=== PATIENT | male | born 1940 | race Caucasian/White ===

== ENCOUNTER → 2016-08-10 | Outpatient (CLI) | payer OTHER ==
[~2016-08-10] MED LIST: ASPEC81 PO; CLOP1TAB15 PO; NTRGSL/4 UT; SIMV40TA2 PO
[2016-08-10 12:49] LABS: ALT/SGPT 19 U/L (12-78); BLOOD UREA NITROGEN 17 mg/dl (7-18); CALCIUM 9.6 mg/dl (8.5-10.1); CARBON DIOXIDE 28 mmol/L (21-32); CHLORIDE 105 mmol/L (98-107); CHOLESTEROL 137 mg/dl (0-200); GLUCOSE 97 mg/dl (70-99); POTASSIUM 4.3 mmol/L (3.5-5.1); SODIUM 142 mmol/L (136-145); TRIGLYCERIDES 83 mg/dl (0-150); VERY LOW DENSITY LIPOPROT CALC 17 mg/dl
[2016-08-10 12:53] LABS: AST/SGOT 23 U/L (15-37); CHOLESTEROL/HDL RATIO 2.5; HDL CHOLESTEROL 55 mg/dl; LDL CHOLESTEROL CALCULATED 65 mg/dl
== END | disposition home or self-care (01) ==
LOC: C.LAB1850 11:15
PROVIDERS: ATTEND Internal Medicine
DX: E78.5 Hyperlipidemia, unspecified (principal); R73.9 Hyperglycemia, unspecified; R97.20 Elevated prostate specific antigen [PSA]

== ENCOUNTER → 2016-10-14 | Outpatient (CLI) | payer OTHER ==
[2016-10-14 12:29] LABS: % FREE PSA 29.4 %; FREE PSA 1.44 ng/ml; PROSTATE SPECIFIC ANTIGEN 4.9 ng/ml (0.000-4.000)
== END | disposition home or self-care (01) ==
LOC: C.LAB1850 10:20
PROVIDERS: ATTEND Internal Medicine
DX: R97.20 Elevated prostate specific antigen [PSA] (principal)

== ENCOUNTER → 2017-02-16 | Outpatient (CLI) | payer OTHER ==
[2017-02-16 11:16] LABS: CHOLESTEROL/HDL RATIO 2.2
== END | disposition home or self-care (01) ==
LOC: C.LAB1850 09:42
PROVIDERS: ATTEND Internal Medicine Cardiovascular Disease
DX: E78.5 Hyperlipidemia, unspecified (principal)

== ENCOUNTER 2017-08-29 06:10 | Day surgery (SDC) | payer OTHER ==
[2017-08-17 13:58] VITALS: BMI 27.0
--- NOTE | 2017-08-17 14:33 | PAT Medication Instructions ---
Service Date Aug 17, 2017. Current Home Medication List Aspirin Enteric Coated (Ecotrin Or Generic), 81 MG PO QAM Clopidogrel (Plavix), 75 MG PO QAM Nitroglycerin (Nitrostat), 0.4 MG UT PRN Ocuvite Preservision (Ocuvite Preservision), 1 TAB PO BID Simvastatin (Zocor), 40 MG PO QPM Tamsulosin HCl (Tamsulosin HCl), 1 TAB PO QPM Medication Instructions For Your Scheduled Surgery - Per surgeon and clinical administrator instructions: Aspirin Enteric Coated (Ecotrin Or Generic), 81 MG PO QAM - Hold the following medications the morning of surgery: Ocuvite Preservision (Ocuvite Preservision), 1 TAB PO BID - Take the following medications the morning of surgery with a sip of water: Nitroglycerin (Nitrostat), 0.4 MG UT PRN (if needed) Clopidogrel (Plavix), 75 MG PO QAM (to continue per surgeon and clinical administrator) - Take the following medications as scheduled the night before surgery: Tamsulosin HCl (Tamsulosin HCl), 1 TAB PO QPM Ocuvite Preservision (Ocuvite Preservision), 1 TAB PO BID Simvastatin (Zocor), 40 MG PO QPM Nitroglycerin (Nitrostat), 0.4 MG UT PRN (if needed) If you have any questions please call us at [phone] or [phone] or [phone]
--- NOTE | 2017-08-17 15:03 | DIAGNOSTIC IMAGING REPORT ---
CHEST 2 VIEWS ROUTINE HISTORY: 76 years-old Male PAT preoperative exam. No acute chest complaints. COMPARISON: Chest radiographs 08/25/2015 TECHNIQUE: PA and lateral views of the chest FINDINGS: The patient is slightly rotated to the left. Atherosclerosis of the aorta. Coronary arterial stent graft noted. Minimal subsegmental bibasilar opacities suggest atelectasis. There is no pneumothorax, pleural effusion, focal airspace consolidation or overt pulmonary edema. The bones of the chest appear grossly intact. Advanced degenerative changes are noted about the right shoulder. IMPRESSION: Subsegmental bibasilar opacities suggest atelectasis. No acute process identified. The above report was generated using voice recognition software. It may contain grammatical, syntax or spelling errors. Electronically signed by: Justino Chaney M.D. 08/17/2017 3:02 PM Dictated Date/Time: 08/17/2017 3:00 PM
[2017-08-17 16:19] LABS: BASO % 0.5 %; BASO ABS # 0.04 K/uL (0-0.2); EOS % 2.6 %; HEMATOCRIT 44.1 % (42-52); HEMOGLOBIN 15.5 g/dL (14.0-18.0); IG# 0.01 K/uL (0.00-0.02); LYMPH ABS # 2.43 K/uL (1.2-3.4); MEAN CELL VOLUME 85.1 fL (80-100); MEAN CORPUSCULAR HEMOGLOBIN 29.9 pg (25-34); MEAN CORPUSCULAR HGB CONC 35.1 g/dl (32-36); MEAN PLATELET VOLUME 9.1 fL (7.4-10.4); MONO % 9.3 %; MONO ABS # 0.71 K/uL (0.11-0.59); NEUT % 55.5 %; NEUT ABS # 4.21 K/uL (1.4-6.5); PLATELET COUNT 281 K/uL (130-400); RED CELL DISTRIBUTION WIDTH CV 14.2 % (11.5-14.5); RED CELL DISTRIBUTION WIDTH SD 44.3 fL (36.4-46.3)
[2017-08-17 16:41] LABS: CREATININE 1.09 mg/dl (0.60-1.40); POTASSIUM 4.6 mmol/L (3.5-5.1)
[~2017-08-29] VITALS: Ht 180.3 cm; Wt 88.6 kg
[~2017-08-29 06:10] MED LIST changes: -ASPEC81 PO; +ASPI81TA21 PO; +CIPROFLOXACIN / D5W 400 MG IV SCH; +FLM4 PO; +LACTATED RINGER'S 1000ML 1,000 ML IV SCH; +MULT-190 PO
[2017-08-29 06:33] VITALS: BP 140/75; PULSE 63; TEMP 37.3; O2SAT 97; Ht 180.3 cm; Wt 88.6 kg
--- NOTE | 2017-08-29 07:26 | History & Physical Bridge Note ---
H&P Re-Evaluation Bridge Note: I have examined the patient, reviewed the History & Physical and in the interval since the performance of the History & Physical I have noted the following changes of clinical significance: No changes noted
[2017-08-29] MEDS ORDERED: FENTANYL CITRATE INJ 50 MCG/1 ML 2 ML VIAL ONE (08:02)
[2017-08-29] MEDS ORDERED: MIDAZOLAM HCL 1 MG/ML 2ML VIAL ONE (08:02)
[2017-08-29] MEDS ORDERED: PROPOFOL IV EMULSION 10 MG/ML 20 ML VIAL IV ONE (08:02)
[2017-08-29] MEDS ORDERED: LIDOCAINE HCL 2% 2 ML VIAL (20MG/ML) ONE (08:02)
--- NOTE | 2017-08-29 09:13 | [facility] Operative Report ---
Operative Report Operative Date Aug 29, 2017. Pre-Operative Diagnosis Benign Prostate Hypertrophy with Urinary Retention Post-Operative Diagnosis Benign Prostate Hypertrophy with Urinary Retention Procedure(s) Performed Cystoscopy, uro-lift Surgeon Dr. Cody Estimated Blood Loss 0 cc Specimens none per surgeon Drains None Anesthesia Type MAC Complication(s) none Disposition yes Recovery Room / PACU Indications Voiding dysfunction Description of Procedure Patient was identified in the preoperative holding area, appropriate informed consents were reviewed and completed and the patient was transported to the operating suite. Upon arrival he received appropriate preoperative antibiotics in the form of ciprofloxacin. Adequate sedation was achieved, and he was placed in dorsal lithotomy position where he was sterilely prepped and draped in standard fashion. I began the case by passing a cystoscope with 0 lens. Inspection of the urethra revealed healthy-appearing mucosa without evidence of strictures. Prostate was inspected, and he was noted to have lateral lobe hypertrophy. Full inspection of the bladder was carried out. There were no tumors, stones, or other abnormalities. I then exchanged visual obturator for the first uro-lift device. The first suture was deployed on the right side of the prostate approximately 1 cm in from the bladder neck. A mirror image suture was then deployed on the left. A third suture was placed adjacent to the verumontanum on the right. A fourth suture was placed in a mirror image of this location on the left. Inspection again revealed some redundant tissue in the patient's right lateral lobe. I elected to place 1/5 device in the midportion of the right lateral lobe to relieve this obstruction. After placement of this device, there was a nice anterior channel created. I confirmed excellent hemostasis and concluded the case. He was reversed from anesthesia and taken to the PACU in stable condition. I attest to the content of the Intraoperative Record and any orders documented therein. Any exceptions are noted below.
[2017-08-29] MEDS ORDERED: SODIUM CHLORIDE 0.9% 1000ML 1,000 ML IV SCH (09:14)
[2017-08-29] MEDS ORDERED: ACETAMINOPHEN 325 MG TAB PO PRN (09:15)
[2017-08-29] MEDS ORDERED: OXYCODONE/ACETAMINOPHEN 5-325 TAB PO PRN ×2 (09:15)
[2017-08-29] MEDS ORDERED: ACET-749 PO (09:16)
[2017-08-29] MEDS ORDERED: CIPR-255 PO (09:16)
--- NOTE | 2017-08-29 09:18 | Discharge Instructions ---
Discharge Instructions Date of Service Aug 29, 2017. Admission Reason for Admission: Benign Prostatic Hypertrophy Discharge Discharge Diagnosis / Problem: BPH Discharge Goals Goal(s): Decrease discomfort, Improve function, Increase independence, Improve disease control, Prevent Disease Progression Activity Recommendations Activity Limitations: resume your previous activity Lifting Limitations: none Exercise/Sports Limitations: none May Resume Sexual Activity: when tolerated Shower/Bathe: no limitations Driving or Machine Use: resume 1 day after discharge . Instructions / Follow-Up Instructions / Follow-Up Please keep your previously scheduled follow up appointment with Dr. Cody Current Hospital Diet Patient's current hospital diet: Discharge Diet Recommended Diet: Regular Diet Procedures Procedures Performed: Cystoscopy, uro-lift Pending Studies Studies pending at discharge: no Medical Emergencies . Who to Call and When: Medical Emergencies: If at any time you feel your situation is an emergency, please call 911 immediately. . Non-Emergent Contact Non-Emergency issues call your: Urologist Call Non-Emergent contact if: you have a fever, temperature is above 101.5, your pain is not controlled, your pain is worsening . . "Provider Documentation" section prepared by Amor Robbins. . [place] Drug Monitoring Program Search Results: no issues identified
--- NOTE | 2017-08-29 09:37 | Anesthesiology Progress Note ---
Anesthesia Post Op Note Date & Time Aug 29, 2017 at 09:37 Vital Signs Pain Intensity: 0 Vital Signs Past 12 Hours Date Time Temp Pulse Resp B/P (MAP) Pulse Ox O2 Delivery O2 Flow Rate FiO2 08/29/17 09:25 69 24 105/66 94 Room Air 08/29/17 09:15 36.0 73 13 104/65 95 Room Air 08/29/17 06:33 37.3 63 18 140/75 (96) 97 Room Air Notes Mental Status: alert / awake / arousable, participated in evaluation Pt Amnestic to Procedure: Yes Nausea / Vomiting: adequately controlled Pain: adequately controlled Airway Patency, RR, SpO2: stable & adequate BP & HR: stable & adequate Hydration State: stable & adequate Anesthetic Complications: no major complications apparent
[2017-08-29 09:40] VITALS: BP 113/74; PULSE 60; TEMP 36.1; O2SAT 98
[2017-08-29] MEDS ORDERED: EpHEDrine SULFATE INJ 50 MG/ML AMP IV PRN (09:45)
[2017-08-29] MEDS ORDERED: FENTANYL CITRATE INJ 50 MCG/1 ML 2 ML VIAL IV PRN (09:45)
[2017-08-29] MEDS ORDERED: ATROPINE SULFATE 0.1 MG/ML 5ML SYR IV PRN (09:45)
[2017-08-29] MEDS ORDERED: ONDANSETRON INJ 2 MG/ML 2 ML VIAL IV PRN (09:45)
[2017-08-29 10:10] VITALS: BP 124/77; PULSE 59; TEMP 36.6; O2SAT 96
[2017-08-29 10:40] VITALS: BP 118/76; PULSE 61; TEMP 36.6; O2SAT 96
== END 2017-08-29 10:40 | disposition home or self-care (01) ==
LOC: C.ACU 06:10
PROVIDERS: ATTEND Urology
DX: N40.1 Benign prostatic hyperplasia with lower urinary tract symptoms (principal); N13.8 Other obstructive and reflux uropathy; M19.90 Unspecified osteoarthritis, unspecified site; I25.10 Atherosclerotic heart disease of native coronary artery without angina pectoris; Z85.828 Personal history of other malignant neoplasm of skin; E78.5 Hyperlipidemia, unspecified; I34.0 Nonrheumatic mitral (valve) insufficiency; G62.9 Polyneuropathy, unspecified; I25.2 Old myocardial infarction; I10 Essential (primary) hypertension; Z87.891 Personal history of nicotine dependence; Z79.82 Long term (current) use of aspirin; Z79.899 Other long term (current) drug therapy; Z88.2 Allergy status to sulfonamides

== ENCOUNTER → 2017-09-06 | Outpatient (CLI) | payer OTHER ==
[~2017-09-06] MED LIST changes: +ACET-749 PO; +CIPR-255 PO; -CIPROFLOXACIN / D5W 400 MG IV SCH; -FLM4 PO; -LACTATED RINGER'S 1000ML 1,000 ML IV SCH
[2017-09-06 12:21] LABS: HEMOGLOBIN A1C 5.5 % (4.5-5.6)
[2017-09-06 12:22] LABS: ALT/SGPT 19 U/L (12-78); BLOOD UREA NITROGEN 17 mg/dl (7-18); CALCIUM 9.2 mg/dl (8.5-10.1); CARBON DIOXIDE 29 mmol/L (21-32); CHOLESTEROL 152 mg/dl (0-200); CREATININE 1.08 mg/dl (0.60-1.40); GLUCOSE 97 mg/dl (70-99); POTASSIUM 3.9 mmol/L (3.5-5.1); SODIUM 139 mmol/L (136-145)
[2017-09-06 12:26] LABS: AST/SGOT 22 U/L (15-37); LDL CHOLESTEROL CALCULATED 78 mg/dl
== END | disposition home or self-care (01) ==
LOC: C.LAB1850 10:23
PROVIDERS: ATTEND Internal Medicine
DX: R73.9 Hyperglycemia, unspecified (principal); E78.5 Hyperlipidemia, unspecified; R97.20 Elevated prostate specific antigen [PSA]

== ENCOUNTER → 2017-12-26 | Outpatient (CLI) | payer OTHER ==
[~2017-12-26] MED LIST changes: -ACET-749 PO; +ACET300T3 PO; +ASPI-319 PO; -ASPI81TA21 PO
--- NOTE | 2017-12-26 16:23 | DIAGNOSTIC IMAGING REPORT ---
Brain MRI WITHOUT CONTRAST HISTORY: R27.0 Ataxia [id number] TECHNIQUE: Multiplanar multisequence MRI of the brain was performed without the use of contrast. COMPARISON STUDY: Brain MRI 02/11/2014. FINDINGS: There are no areas of restricted diffusion to suggest acute infarction. The midline structures are intact. Mild mucosal thickening and small retention cysts within the maxillary sinuses. The mastoid air cells are clear. The ventricles and sulci demonstrate mild atrophic changes.. There is no mass, hematoma, midline shift. The major vascular flow-voids at the skull base are well maintained. IMPRESSION: No acute intracranial abnormality. Electronically signed by: Rob Ross M.D. 12/26/2017 4:22 PM Dictated Date/Time: 12/26/2017 4:15 PM
== END | disposition home or self-care (01) ==
LOC: C.MRI 14:56
PROVIDERS: ATTEND Internal Medicine
DX: R27.0 Ataxia, unspecified (principal)

== ENCOUNTER → 2018-01-23 | Outpatient (CLI) | payer OTHER ==
[2018-01-23 12:43] LABS: BLOOD UREA NITROGEN 14 mg/dl (7-18); CALCIUM 9.2 mg/dl (8.5-10.1); CARBON DIOXIDE 31 mmol/L (21-32); CREATININE 1.03 mg/dl (0.60-1.40); GLUCOSE 97 mg/dl (70-99); POTASSIUM 4.5 mmol/L (3.5-5.1); SODIUM 140 mmol/L (136-145)
== END | disposition home or self-care (01) ==
LOC: C.LAB1850 10:32
PROVIDERS: ATTEND Internal Medicine
DX: R26.89 Other abnormalities of gait and mobility (principal)

== ENCOUNTER 2022-04-22 01:11 | Observation (INO) ==
[2022-04-22 01:51] LABS: Basophils # (auto) 0.04 K/uL (0-0.2); Basophils % (auto) 0.5 %; Eosinophils # (auto) 0.19 K/uL (0-0.50); Eosinophils % (auto) 2.5 %; Hematocrit (blood only) 41.6 % (40.1-51.0); Hemoglobin 14.4 g/dl (14.0-18.0); Immature Granulocytes # (auto) 0.01 K/uL (0.00-0.02); Immature Granulocytes % (auto) 0.1 %; Lymphocytes # (auto) 0.82 K/uL (1.2-3.4); Mean Corpuscular Hemoglobin 29.3 pg (25.0-34.0); Mean Corpuscular Hgb Conc 34.6 g/dL (32.0-36.0); Mean Corpuscular Volume 84.7 fL (80.0-100.0); Monocytes # (auto) 1.13 K/uL (0.24-0.82); Monocytes % (auto) 15.1 %; Neutrophils # (auto) 5.29 K/uL (1.4-6.5); Neutrophils % (auto) 70.8 %; Platelet Count 277 K/uL (130-400); RDW Coefficient of Variation 13.6 % (11.5-14.5); RDW Standard Deviation 42.3 fL (36.4-46.3); Red Blood Count 4.91 M/uL (4.63-6.08); White Blood Count 7.48 K/ul (4.8-10.8)
[2022-04-22] MEDS ORDERED: OPTIRAY 320 500ml IV ONE (01:55)
[2022-04-22 02:10] LABS: Alanine Aminotransferase 9 U/L (7-52); Albumin Globulin Ratio 1.5 (0.9-2); Albumin Level 4.1 gm/dl (3.4-5.0); Alkaline Phosphatase 75 U/L (34-104); Anion Gap 7 (3-11); Aspartate Aminotransferase 17 U/L (13-39); BUN Creatinine Ratio 18.9 (10-20); Bilirubin,Total 0.8 mg/dl (0.2-1.0); Blood Urea Nitrogen 18 mg/dl (6-23); Calcium 9.6 mg/dl (8.5-10.1); Carbon Dioxide 28 mmol/L (21-32); Chloride 102 mmol/L (98-107); Est GFR (African American) 87.3 ml/min; Est GFR (Non-African American) 75.3 ml/min; Globulin 2.8 gm/dl (2.5-4.0); Glucose 100 mg/dl (70-99(Fasting)); INR 1.1 (0.9-1.1); Magnesium 1.9 mg/dl (1.7-2.4); Partial Thromboplastin Ratio 1.1; Partial Thromboplastin Time 29.3 Seconds (21.0-31.0); Potassium 3.9 mmol/L (3.5-5.1); Prothrombin Time 11.5 Seconds (9.0-12.0); Sodium 137 mmol/L (136-145); Total Protein 6.9 gm/dl (6.0-8.3)
[2022-04-22 02:12] LABS: Troponin I High Sensitivity 8.7 pg/ml (0-20)
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
[2022-04-22] MEDS ORDERED: ONDANSETRON INJ 2 MG/ML 2 ML VIAL IV PRN (05:08)
[2022-04-22] MEDS ORDERED: ACETAMINOPHEN 500 MG TAB PO PRN ×2 (05:08→12:26)
--- NOTE | 2022-04-22 06:58 | CT Scan Report ---
CT ANGIOGRAM OF THE NECK CLINICAL HISTORY: Strokelike symptoms. Lower extremity weakness. COMPARISON STUDY: No priors. TECHNIQUE: Following the IV administration of 101 of Optiray 320, CT angiogram of the neck was perfor med from the aortic arch to the skull base. Images are reviewed in the axial, sagittal, and coronal p lanes. 3-D MIPS images are created and assessed. IV contrast was administered without complication. A ll measurements were calculated based on NASCET criteria. A dose lowering technique was utilized adh ering to the principles of ALARA. FINDINGS: Thoracic aorta: There is atherosclerotic calcification of the thoracic aorta. Visualized portions of the thoracic aorta are normal in caliber. The aortic arch demonstrates standard 3-vessel anatomy. Right carotid arterial system: The right common carotid artery is widely patent, as are the right int ernal and external carotid arteries. Mild plaque is seen in the carotid bulb. Left carotid arterial system: The left common carotid artery is widely patent, as are the left engineer intern al and external carotid arteries. Minimal plaque is noted in the carotid bulb. Vertebral arteries: The vertebral arteries are widely patent bilaterally and codominant in neck. Subclavian arteries: Widely patent bilaterally. Intracranial vasculature: The visualized intracranial vessels at skull base are patent. Jugular veins: Widely patent bilaterally. Brain parenchyma: The visualized brain parenchyma the skull base is within normal limits. Lung apices: Partially visualized upper lobe lung parenchyma appears clear. Soft tissues: The visualized pharyngeal soft tissues are normal in appearance noting angiographic pha se technique. The oropharyngeal airway appears widely patent. The thyroid gland is heterogeneous. The salivary glands are normal in appearance. No cervical lymphadenopathy is seen. Skeletal structures: The skeletal structures are osteopenic. The visualized calvarium at the skull ba se appears intact. The imaged cervical spine is maintains noting multilevel spondylosis. No lytic or blastic lesion is seen. Sinuses and mastoids: There is trace mucosal thickening within the maxillary antra. A 1.8 cm osteoma is noted in the right maxillary sinus. The remaining visualized paranasal sinuses are clear. The mast oid air cells are well pneumatized. IMPRESSION: Unremarkable CT angiogram of the neck. ACT 112: Negative or not required by law. Electronically signed by: Arun Rajput M.D. 04/22/2022 6:56 AM
--- NOTE | 2022-04-22 07:47 | XRay Report ---
XR chest 1V portable CLINICAL HISTORY: Stroke Like Symptoms TECHNIQUE: Single frontal radiograph of the chest was obtained. Comparison: Comparison is made to chest radiograph 10/14/2005 FINDINGS: No lines and tubes are seen. Calcified aortic knob is seen. The lungs are clear. No evidence of pleur al effusion or pneumothorax. Degenerative changes are seen in the bilateral shoulder joints. IMPRESSION: No acute chest disease. ACT 112: Negative or not required by law. Electronically signed by: Chris Hayes M.D. 04/22/2022 7:46 AM
--- NOTE | 2022-04-22 07:56 | CT Scan Report ---
CT angio head w con, CT head/brain wo con CLINICAL HISTORY: Stroke Like Symptoms TECHNIQUE: Contiguous axial CT images of the head were acquired from the base of the skull to the leeroy katie without intravenous contrast administration. CT angiography of the head was performed following intravenous administration of iodinated contrast. Coronal and sagittal MIPS were obtained from the ax ial data set and were submitted for review. Automated dose lowering techniques and/or adjustment acc ording to patient size were utilized for this examination. All measurements were calculated based on NASCET criteria. CT DOSE: 1228.29 mGy.cm Comparison: Comparison is made to CTA neck 04/22/2022 and MRI brain 07/23/2020 FINDINGS: CT head: Areas of decreased attenuation are present in the periventricular and subcortical white baylee er bilaterally consistent with small vessel ischemic disease. Generalized cerebral atrophy with comme nsurate enlargement of the ventricles, sulci, and cisterns is also present. There is no acute intracr anial hemorrhage or evidence of acute territorial infarction. No shift of the midline structures, mas s effect, or extra-axial abnormalities are shown. Atherosclerotic calcifications are present in the intracranial segments of the internal carotid arteries. Incidental note is made of a mucous retention cyst in the left maxillary sinus. CTA Head: The anterior and posterior cerebral circulations are patent. origin of the right pos terior cerebral artery is seen. IMPRESSION: 1. No acute intracranial hemorrhage, evidence of acute territorial infarction, or other acute intrac ranial disease process. 2. No occlusion, hemodynamically significant stenosis, aneurysm, dissection, or arteriovenous malfor mation in the major intracranial arteries. Assessment of stenosis of the internal carotid arteries is based on NASCET criteria. ACT 112: Negative or not required by law. Electronically signed by: Chris Hayes M.D. 04/22/2022 7:55 AM
[2022-04-22] MEDS: CHOLECALCIFEROL 1,000 UNITS 25 MCG TAB PO SCH (08:38)
[2022-04-22] MEDS: CLOPIDOGREL BISULFATE 75 MG TAB PO SCH (08:38)
[2022-04-22] MEDS: ASPIRIN 81 MG ECTAB PO SCH (08:38)
[2022-04-22] MEDS: SIMVASTATIN 40 MG TAB PO SCH (08:38)
[2022-04-22] MEDS ORDERED: GADOBUTROL 65ML VIAL IV ONE (09:40)
--- NOTE | 2022-04-22 10:08 | Magnetic Resonance Report ---
MR brain wo/w con CLINICAL HISTORY: ?CVA TECHNIQUE: Multiplanar and multisequence MR images of the brain were obtained prior to and following administration of gadolinium contrast. Comparison: Comparison is made to MRI brain 07/23/2020 and CTA head and neck 04/22/2022 FINDINGS: No abnormal restricted diffusion is identified. Foci of T2 and FLAIR hyperintensity are noted in the paraventricular areas consistent with chronic small vessel ischemic disease. Ex vacuo ventriculomegal y and sulcal enlargement is noted compatible with diffuse encephalomalacia. No mass or abnormal enhan cement is seen. There is no mass effect or midline shift. There is no evidence of acute intraparenchy mal hemorrhage. No extra axial fluid collections are seen. The corpus callosum, pituitary gland, and cerebellar tonsils appear grossly unremarkable. Flow voids of the major intracranial arterial vessels are identified. The imaged portions of the para nasal sinuses, mastoid air cells, and orbits are unremarkable. IMPRESSION: No acute abnormalities. ACT 112: Negative or not required by law. Electronically signed by: Chris Hayes M.D. 04/22/2022 10:07 AM
--- NOTE | 2022-04-22 11:05 | XCELERA ---
[id number]
--- NOTE | 2022-04-22 12:17 | Electrocardiogram Report ---
Test Reason : Blood Pressure : / mmHG Vent. Rate : 103 BPM Atrial Rate : 103 BPM P-R Int : 160 ms QRS Dur : 070 ms QT Int : 322 ms P-R-T Axes : 062 017 094 degrees QTc Int : 421 ms Poor data quality, interpretation may be adversely affected Sinus tachycardia with occasional Premature ventricular complexes Diffuse Nonspecific ST and T wave abnormality Abnormal ECG When compared with ECG of 17-AUG-2017 14:41, Premature ventricular complexes are now Present Vent. rate has increased BY 49 BPM Confirmed by Joseph Yates ([id number]) on 04/22/2022 12:17:21 PM Referred By: REFERRED SELF Confirmed By:Joseph Yates
--- NOTE | 2022-04-22 13:10 | History & Physical Bridge Note ---
Date of Service April 22, 2022 History & Physical Bridge Note I have examined the patient, reviewed the History & Physical and in the interval since the performance of the History & Physical I have noted the following changes of clinical significance: Pt reports a hoarse, raspy voice, no sore throat. Also having an 8/10 frontal headache. Feels some chest congestion but no cough, no SOB. No nausea but does have low appetite. No diarrhea, is making urine. Reports his imbalance is chronic with his cerebellar ataxia. VSS NAD, AAOx3 RRR no mgr CTAB no wcr Abd +BS soft NT ND Ext no edema Neuro CN 2-12 intact, no facial droop, no slurred speech, moving all extremities, 5/5 strength throughout Skin-no rashes 81 yo male here with possible slurred speech and facial droop, ruled out for CVA with negative brain MRI, CTA head and neck negative. ECHO with mod reduced EF as before unchanged, neg bubble study, no events on tele. No focal neuro symptoms. Does have COVID likely causing symptoms. Headache-increase tylenol to 1000mg po q8h prn pain or fever No hypoxia-no need for steroids. Could consider Remdesevir but unclear when symptoms started Labs acceptable CXR negative for PNA Needs PT/OT, continued stay to ensure acceptable to return home as opposed to rehab given underlying cerebellar ataxia. Likely discharge to home on Tuesday if fatigue, generalized weakness and low appetite improve.
[2022-04-23 06:29] LABS: Basophils # (auto) 0.03 K/uL (0-0.2); Basophils % (auto) 0.6 %; Eosinophils # (auto) 0.06 K/uL (0-0.50); Eosinophils % (auto) 1.2 %; Hematocrit (blood only) 41.6 % (40.1-51.0); Hemoglobin 14.8 g/dl (14.0-18.0); Immature Granulocytes # (auto) 0.01 K/uL (0.00-0.02); Immature Granulocytes % (auto) 0.2 %; Lymphocytes % (auto) 29.9 %; Mean Corpuscular Hemoglobin 29.4 pg (25.0-34.0); Mean Corpuscular Hgb Conc 35.6 g/dL (32.0-36.0); Mean Corpuscular Volume 82.7 fL (80.0-100.0); Monocytes # (auto) 0.93 K/uL (0.24-0.82); Monocytes % (auto) 18.5 %; Neutrophils # (auto) 2.49 K/uL (1.4-6.5); Neutrophils % (auto) 49.6 %; Platelet Count 249 K/uL (130-400); RDW Coefficient of Variation 13.8 % (11.5-14.5); RDW Standard Deviation 41.7 fL (36.4-46.3); Red Blood Count 5.03 M/uL (4.63-6.08); White Blood Count 5.02 K/ul (4.8-10.8)
[2022-04-23 06:52] LABS: BUN Creatinine Ratio 14.3 (10-20); Calcium 9.3 mg/dl (8.5-10.1); Creatinine Clr Calc Pharmacy 61.1 ml/min; Est GFR (African American) 84.1 ml/min; Est GFR (Non-African American) 72.5 ml/min
[2022-04-23] MEDS: ASPIRIN 81 MG ECTAB PO SCH (08:46)
[2022-04-23] MEDS: CHOLECALCIFEROL 1,000 UNITS 25 MCG TAB PO SCH (08:46)
[2022-04-23] MEDS: CLOPIDOGREL BISULFATE 75 MG TAB PO SCH (08:46)
[2022-04-23] MEDS: SIMVASTATIN 40 MG TAB PO SCH (08:46)
--- NOTE | 2022-04-23 17:35 | Discharge Summary ---
Date of Service April 23, 2022 Admission HPI Per Admitting Provider Cy Gastelum is a pleasant 81yo male with history of HTN, CAD, BPH and cerebellar ataxia presenting with acute onset of imbalance, weakness and slurred speech. Patient began feeling ill yesterday with fairly acute onset of congestion and generalized weakness. Around 12:00 he developed acute weakness and difficulty with ambulation requiring assistance. This evening he required assistance with ambulation again - was having difficulty walking downstairs and picking up his feet. He reports his speech felt slightly slurred and he possibly had a mild right facial droop. Patient is fully vaccinated against Covid-19. was ill last week with URI symptoms but tested NEGATIVE for Covid-19 several times. Family is visiting presently from out of town. Patient denies chest pain, cough, SOB. No additional complaints at this time. In the ER he is afebrile, HD stable, NAD. Adequate oxygenation on room air. Principal Diagnosis Slurring of speech and generalized weakness likely from COVID-19, heart failure reduced ejection fraction chronic unchanged Discharge Exam The patient was seen in his rather warm hospital room around 1525 where he was isolated for COVID-19. He was agile and conversational. Could give me minute details of his history. 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 Normal [id number] bilaterally Psychcheerful with good insight and judgment Discharge Data Allergies Allergy/AdvReac Type Severity Reaction Status Date / Time Sulfa (Sulfonamide AdvReac Intermediate SEVERE Verified 04/22/22 01:34 Antibiotics) MOUTH ULCERS celecoxib AdvReac Mild MOUTH Verified 04/22/22 01:34 ULCERS rofecoxib AdvReac Mild MOUTH Verified 04/22/22 01:34 ULCERS Consultations None Ordered Studies 04/22/22 01:20 CT angio head w con Urgent CT angio neck with con Urgent CT head/brain wo con Urgent 04/22/22 05:08 MR brain wo/w con Routine Hospital Course (1) Imbalance: 81yo male with history of CAD, HLP and cerebellar ataxia presenting with acute onset of generalized weakness, imbalance, possible slurred speech and right facial droop. Patient POSITIVE for Covid-19 infection. Suspect symptoms are predominantly secondary to Covid-19 infection rather than cerebral ischemia. -Observation to medical with telemetry -Maintain Covid-19 isolation -Neuro checks, NIHSS per protocol -Check MRI brain -no acute changes. -Checked 2d echo with bubble study. LVEF 40 to 45% with moderate global hypokinesis, no interatrial shunt seen, mild MR. 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 He says he has been busy and other appointments. Was urged at discharge to see Dr. 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 She saw a neurologist in [facility] about 3 years ago. We will get him a follow-up with a local neurologist in the next week. And [facility] neurology is his choice. Current symptoms were felt to be related to COVID-19 rather than any TIA per the treating and admitting team. I picked up the patient's care just an hour or 2 before discharge on hospital day 3. (2) COVID-19: Patient is fully vaccinated + booster. Presently afebrile, HD stable. Adequate oxygenation on room air with no respiratory complaints. -Monitor oxygenation. Presently no indication for treatment with steroids, Remdesivir or supplemental O2 Oxygen saturation 97% on room air no pulmonary symptoms. Asked to isolate from his till 27 April. -Tylenol PRN (3) Coronary artery arteriosclerosis: Chronic. Stable. Patient is s/p WI with stent placement in LCx. He had a dobutamine stress echo in January 2021 which was NEGATIVE for inducible ischemia. Borderline LV dysfunction with EF of 45-50%. Patient follows with Cardiology. Last saw Dr. Latham in July 2021. Did not keep 6-month follow-up -Continue ASA, Plavix and Simvastatin (4) Hyperlipidemia: Chronic. Well controlled on Simvastatin 40mg daily Lipid panel has not been checked for quite some time and can be done as an outpatient -Continue Simvastatin F/E/N - Heplock. Electrolytes WNL. Heart Healthy diet as tolerated Ppx - SCDs Code - Full Dispo -Observation to medical with telemetry Total Time Total Time Spent Total Time Spent (In Minutes): 45 Discharge Plan Discharge Items Patient Disposition: Home - Self-Care Reason For Visit: TIA? / CVA Discharge Diagnosis: Covid 19 infection w weakness- stay isolated from your and others until Tuesday please. please seek medical attention if you developed shortness of breath, cough or confusion. You have had no pneumonia from Covid 19 but we must be cautious at this age. Cerebellar ataxia with gait dysfunction chronic Health Concerns: You need to use a walker consistently and not just a cane because you have been falling. Hip fracture is a major cause of illness and after age 71 Goals: See an outpatient neurologistwe will get an appointment with [facility] neurology to follow-up on cerebellar ataxia and possibly work-up of carotid arteries. Activity: Resume your previous activity Lifting: Gradually increase as tolerated Bathing: No limitations Sexual Activity: When tolerated Exercise/Sports: None and As tolerated Non-emergency contact: Primary Care Provider Call non-emergency contact if: you have any medication questions Follow-up/Referrals: ProJaswinder MD [Primary Care Provider] - Yinka Coronado DO [Physician] - 05/21/22 9:20 am Diet: Heart Healthy Addtl Attending Provider Instructions: See your PCP within a week Pending Studies at Discharge: No Stand-Alone Forms: My [facility], Smoking Cessation Medications and DC Order Prescriptions: Continued acetaminophen 500 mg capsule 500 mg PO Q6H PRN (Reason: PAIN/FEVER) clopidogrel 75 mg tablet 75 mg PO DAILY Qty: 90 3RF simvastatin 40 mg tablet 40 mg PO DAILY Qty: 90 3RF PreserVision AREDS [id number] eafs-ja-[id number] capsule 1 cap PO BID nitroglycerin 0.4 mg tablet, sublingual 0.4 mg SL Q5M PRN (Reason: chest pain) Qty: 1 0RF aspirin 81 mg Tablet,Delayed Release (Dr/Ec) 81 mg PO DAILY cholecalciferol (vitamin D3) [Vitamin D3] 50 mcg (2,000 unit) Capsule 50 mcg PO DAILY fluticasone propionate 50 mcg/actuation spray,suspension 2 spray intranasal DAILY PRN (Reason: Congestion) Rx Instructions: administer into each nostril daily Discharge Orders: Discharge Order (Routine); Ordered 04/23/22 Ordered By: Sundeep Smith Admission Data Admit Date/Time: 04/22/22 03:29 Attending Provider: Sundeep Smith Admit Provider: Yue Martinez Primary Care Provider: Jaswinder Orta Other Providers: Yue Martinez Other Interventions: Discharge Summary Assessment (RN) Last Done: 04/23/22 17:22 Coding Level of Care Code D/C DAY MANAGEMENT >30 MINS Diagnoses Imbalance R26.89 COVID-19 U07.1 Coronary artery arteriosclerosis I25.10 Hyperlipidemia E78.5
== END 2022-04-23 18:06 | disposition home or self-care (01) ==
LOC: 2W 01:11 → ED 01:11 → SUATTDRO 03:29 → 2W 04:44

== ENCOUNTER 2022-07-07 10:12 | Observation (INO) ==
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
[~2022-07-07 10:12] MED LIST changes: -ACET300T3 PO; +ACETAMINOPHEN 500 MG TAB PO SCH; -ASPI-319 PO; +BUPIVACAINE 0.5 % 5 MG/1 ML PF 10ML VIAL ONE; -CIPR-255 PO; -CLOP1TAB15 PO; +FAMOTIDINE 20 MG TAB PO SCH; +GABAPENTIN 300 MG CAP PO SCH; +LR 15ML/HR IV SCH; +LR 60ML/HR IV SCH; -MULT-190 PO; -NTRGSL/4 UT; +ORTHO JOINT MIX INFIL SCH; -SIMV40TA2 PO; +TRANEXAMIC ACID 1,000 MG **IV Intra-op IV SCH; +TRANEXAMIC ACID 1,000 MG **IV Pre-op IV SCH; +ceFAZolin 2000MG 2,000 MG/15 ML SYR IV SCH; +dexAMETHasone 4 MG TAB PO SCH
--- NOTE | 2022-07-07 11:31 | History & Physical Bridge Note ---
Date of Service July 07, 2022 History & Physical Bridge Note I have examined the patient, reviewed the History & Physical and in the interval since the performance of the History & Physical I have noted the following changes of clinical significance: no changes noted
[2022-07-07] MEDS ORDERED: fentaNYL citrate 100 MCG/2 ML VIAL ONE (12:31)
[2022-07-07] MEDS ORDERED: MIDAZOLAM HCL 1 MG/ML 2ML VIAL ONE (12:31)
[2022-07-07] MEDS ORDERED: ORTHO JOINT ANESTHETIC ONE (13:06)
[2022-07-07] MEDS ORDERED: ONDANSETRON INJ 2 MG/ML 2 ML VIAL IV PRN (13:07)
[2022-07-07] MEDS ORDERED: fentaNYL citrate 100 MCG/2 ML VIAL IV PRN (13:07)
[2022-07-07] MEDS ORDERED: ePHEDrine sulfate 50 MG/ML AMP IV PRN (13:07)
[2022-07-07] MEDS ORDERED: ATROPINE SULFATE 0.1 MG/ML 10ML SYR IV PRN (13:07)
[2022-07-07] MEDS ORDERED: LIDOCAINE 2% MPF LOCAL 5 ML VIAL INFIL ONE (14:53)
[2022-07-07] MEDS ORDERED: ONDANSETRON INJ 2 MG/ML 2 ML VIAL ONE (14:53)
[2022-07-07] MEDS ORDERED: PROPOFOL IV EMULSION 10 MG/ML 20 ML VIAL IV ONE (14:53)
[2022-07-07] MEDS ORDERED: DEXAMETHASONE SOD INJ 4 MG/ML VIAL ONE (14:53)
[2022-07-07] MEDS ORDERED: ePHEDrine sulfate 50 MG/ML SYR ONE (15:23)
--- NOTE | 2022-07-07 16:39 | XRay Report ---
XR shoulder RT min 2V routine CLINICAL HISTORY: Post shoulder surgery COMPARISON: CT of the right shoulder May 26, 2022. FINDINGS: Alignment of the reverse total right shoulder arthroplasty is anatomic. There is no peripr osthetic fracture or unexpected radiopaque foreign bodies. There are skin andreina. IMPRESSION: Expected findings following total right shoulder arthroplasty. ACT 112: Negative or not required by law. Electronically signed by: Tom Tinsley M.D. 07/07/2022 4:38 PM
--- NOTE | 2022-07-07 17:00 | Anesthesiology Progress Note ---
Date of Service July 07, 2022 Anesthesia Post Procedure Vital Signs Vital Signs: Temp Pulse Pulse Pulse Resp BP Pulse Ox 07/07/22 16:55 36.4 C L 82 16 130/79 92 07/07/22 16:25 36.4 C L 76 16 147/85 H 94 07/07/22 16:15 82 19 131/80 92 07/07/22 16:05 36.3 C L 80 16 140/77 95 07/07/22 15:55 82 13 122/65 99 07/07/22 15:45 73 17 142/74 H 99 07/07/22 15:35 73 14 125/75 98 07/07/22 15:25 74 14 125/71 98 07/07/22 15:18 36.3 C L 77 21 142/82 H 98 07/07/22 10:38 36.4 C L 74 20 149/86 H 98 O2 Del Method O2 Flow Rate 07/07/22 16:55 Room Air 07/07/22 16:25 Room Air 07/07/22 16:15 Room Air 07/07/22 16:05 Room Air 07/07/22 15:55 Nasal Cannula 4 07/07/22 15:45 Nasal Cannula 4 07/07/22 15:35 Oxymask 12 07/07/22 15:25 Oxymask 12 07/07/22 15:18 Oxymask 12 07/07/22 10:38 Room Air Transfer of Care Handoff Completed per policy Notes Mental Status: alert / awake / arousable and participated in evaluation Patient Amnestic to Procedure: Yes Nausea / Vomiting: adequately controlled Pain: adequately controlled Airway Patency, RR, SpO2: stable & adequate BP & HR: stable & adequate Hydration State: stable & adequate Anesthetic Complications: no major complications apparent and Pt Satisfied with anesthetic care
[2022-07-07] MEDS ORDERED: NALOXONE HCL 0.4 MG/1 ML VIAL/CARP IV PRN (17:20)
[2022-07-07] MEDS ORDERED: oxyCODONE HCL IR 5 MG TAB (IMMEDIATE RELEASE) PO PRN (17:20)
[2022-07-07] MEDS ORDERED: HYDROmorphone INJ 0.5 MG/0.5 ML SYR IV PRN (17:20)
[2022-07-07] MEDS ORDERED: NITROGLYCERIN SL 0.4 MG/TAB TAB SL PRN (17:20)
[2022-07-07] MEDS ORDERED: MAGNESIUM HYDROXIDE SUSP 30 ML UDC PO PRN (17:20)
[2022-07-07] MEDS ORDERED: bisacodyL 10 MG SUPP PR PRN (17:20)
[2022-07-07] MEDS ORDERED: FLUTICASONE PROPIONATE NA SPR 16 GM BTL NAE PRN (17:20)
[2022-07-07] MEDS ORDERED: METOCLOPRAMIDE HCL INJ 5 MG/ML 2 ML VIAL IV PRN (17:20)
--- NOTE | 2022-07-07 17:34 | Operative Report ---
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 A tenodesis was opted. This was a separate and distinct portion of the procedure. For these reasons, a CPT code modifier 59 will be added to this case. Implants used: I used a [employer] Comprehensive reverse total shoulder arthroplasty system with a size 15 press fit micro humeral stem, a standard humeral tray and a standard humeral bearing, a 25 mm large augment baseplate with a 6.5 mm central screw and superior and inferior locking screws, and a size 40 mm eccentric glenosphere. Cy arrived at [facility] for the above procedure. He was seen in the preoperative holding area and the operative extremity was identified and signed. He was given a preoperative antibiotic, TXA, and an interscalene nerve block. He was taken back to the operating room, laid on table in supine position, and put under general anesthesia. He was then put into the beachchair position. The shoulder was then prepped and draped in sterile fashion. A timeout was done and the patient and the operative extremity was properly identified. A deltopectoral approach was used. Dissection was taken down through the fascia and the deltoid was retracted laterally and the conjoined tendon was retracted medially. The anterior shoulder was exposed. The biceps groove was opened up and the biceps tendon was examined extensively. The biceps tendon demonstrated enlargement and inflammatory changes consistent with longstanding inflammation in the context of osteoarthritis and cuff arthropathy. The long head of the biceps tendon was then tenodesed to the upper border of the pectoralis major. This was a separate and distinct portion of the procedure. The subscapularis was then directly released off the lesser tuberosity with a peel technique. The inferior capsule was released and the humeral head was dislocated. A canal finding reamer was sent down the center of the humeral canal. Sequential reaming up to a size 15 reamer was done. Off that reamer, a proximal humeral resection guide was placed. The proximal humerus was resected at 135 of inclination and 25 of retroversion. Osteophytes were then removed and the glenoid was exposed. Time was spent doing a complete capsular and labral release. A [employer] Signature One guide was then attached onto the anterior rim of the glenoid. A 3.2 mm Steinmann pin was then placed in the reverse total shoulder arthroplasty hole. The glenoid baseplate was then reamed. The final size 25 mm large augment ba seplate was then impacted in the place. A 6.5 mm central screw was then placed followed by superior and inferior locking screws. A 40 mm eccentric glenosphere was then impacted into place. Surrounding soft tissues were then injected with 100 cc an orthopedic pain control cocktail. The proximal humerus was then exposed. Sequential broaching of the humerus up to a size 15 broach was done. Off that broach a standard humeral tray was trialed. The shoulder was then reduced, brought through a full range of motion, and felt to be stable. The shoulder was then dislocated and the broach was removed. The final size 15 micro press-fit humeral stem was then impacted into place. A standard humeral bearing was then snapped onto a standard humeral tray. The humeral tray was then impacted onto the humeral stem. The shoulder was once again reduced, brought through a full range of motion, and felt to be stable. The subscapularis was then tenodesed back to the lesser tuberosity with transosseous FiberWire sutures and side to side sutures with the arm in 45 of external rotation. A dilute betadyne lavage was then done for 3 minutes. The joint was then irrigated with normal saline solution. Hemostasis was obtained. The interval was closed with 2-0 Vicryl suture. The skin was then closed with 2-0 Vicryl and andreina. A Silverlon dressing was placed and the arm was rested in a regular arm sling. He was then extubated and transferred to a hospital bed. He taken to the postanesthesia care unit in stable condition. He tolerated the procedure well. I attest to the content of the Intraoperative Record and any orders documented therein. Any exceptions are noted below.
[2022-07-07] MEDS: SODIUM CHLORIDE 0.9% 1000ML 1,000 ML IV SCH ×2 (18:06→22:56)
[2022-07-07] MEDS: KETOROLAC TROMETHAMINE 15 MG/ML VIAL IV SCH ×2 (18:08→23:29)
[2022-07-07] MEDS: DOCUSATE SODIUM 100 MG CAP PO SCH (20:13)
[2022-07-07] MEDS: ceFAZolin 2000MG 2,000 MG/15 ML SYR IV SCH (20:13)
[2022-07-07] MEDS ORDERED: SENNA 8.6 MG TAB PO SCH (21:00)
[2022-07-07] MEDS ORDERED: SIMVASTATIN 40 MG TAB PO SCH (21:00)
[2022-07-08] MEDS: ceFAZolin 2000MG 2,000 MG/15 ML SYR IV SCH (05:04)
[2022-07-08] MEDS: KETOROLAC TROMETHAMINE 15 MG/ML VIAL IV SCH (05:04)
--- NOTE | 2022-07-08 07:57 | Orthopedic Progress Note ---
Date of Service July 08, 2022 Assessment & Plan (1) Status post reverse total replacement of right shoulder: Overall he is doing well. He is not having any pain in the right shoulder. He will be seen by physical therapy today for ambulation and range of motion exercises. He can be discharged home later today. He will follow-up with orthopedics in 2 weeks. Lucas Benoit was seen and examined at bedside this morning. Overall he is doing okay. Is not having any pain in the shoulder. The nerve block is still in effect. He has no complaints.. Review of Systems All systems reviewed & are unremarkable except as noted in HPI & below. Physical Exam On physical examination of the right shoulder, the dressing is clean and dry. He has no active dorsiflexion of his right wrist. The nerve block is still intact.. Results & Data Results & Data Laboratory Results . Diagnostic Findings Postoperative x-rays of the right shoulder show the prosthesis to be in anatomic alignment without any evidence of fracture, education, or loosening. PG Care Time/CCT Total # of Minutes Spent Total Time Spent with Patient: Total time spent is greater than 50% in coordination of care (as documented) at patient's floor/unit and/or counseling patient: Coding Level of Care Code 60583 Post Operative Follow-Up Diagnoses Status post reverse total replacement of right shoulder Z96.611
--- NOTE | 2022-07-08 07:58 | Discharge Summary ---
Date of Service July 08, 2022 Admission HPI (Per Admitting) Cy is a pleasant 81-year-old male who has been dealing with chronic increasing right shoulder pain. He does have a history of a right arthroscopic rotator cuff repair done by Dr. Adams in 2000. He did well for a while, but his shoulder pain has been worse recently. He has trouble doing any activities away from his body or up over head. He has constant pain in his shoulder. It hurts when he sleeps at night. He has already failed extensive conservative treatment. He has elected to proceed with a right reverse shoulder arthroplasty. . Admission Exam (Per Admitting) On physical examination of right shoulder, he has about 40 degrees of forward elevation 40 degrees of abduction. He has weakness throughout. He has severe crepitus with range of motion of his shoulder.. Principal Diagnosis Same as "Discharge Diagnosis" noted below under Discharge Instructions. Discharge Exam On physical examination of the right shoulder, the dressing is clean and dry. He has no active dorsiflexion of his right wrist. The nerve block is still intact.. Discharge Data Procedures Performed Operation Date: 07/07/22 12:45 Actual Procedures p Right Reverse Total Shoulder Arthroplasty(Right) - Aidan Sevilla DO Ordered Studies 07/07/22 05:00 US - OR guided needle placemen Routine Hospital Course (1) Status post reverse total replacement of right shoulder: On July 07, 2022 Cy arrived at [facility] and underwent a ri ght reverse shoulder replacement without complication. He had a general anesthetic and a right interscalene nerve block. Postoperatively he was placed in a sling and transferred to the general orthopedic floors. His hospital course was uneventful. On postop day #1, his vital signs were stable and his pain was well controlled. He was able to participate well with physical therapy doing ambulation and range of motion exercises. He was then discharged to home. He will follow-up with orthopedics in 2 weeks. PG Care Time/CCT Total # of Minutes Spent Total Time Spent with Patient: Total time spent is greater than 50% in coordination of care (as documented) at patient's floor/unit and/or counseling patient: Discharge Plan Discharge Items Patient Disposition: Home - Home Health Services Reason For Visit: POST SURGICAL CARE Discharge Diagnosis: Right shoulder replacement Activity: As commented below Non-emergency contact: Surgeon Call non-emergency contact if: your wound has increased redness and your wound has increased drainage Follow-up/Referrals: ProJaswinder MD [Primary Care Provider] - Diet: Regular Addtl Attending Provider Instructions: Activity and Therapy Recommendations: * If you are using [facility] then therapy will be provided at your home until they feel you have accomplished all of your goals. * If you are using [facility] then Physical Therapy will be provided until they feel you are ready to start Outpatient Physical Therapy. * If you are not using home therapy then Outpatient Physical Therapy should start about 3-5 days from your day of surgery. Therapy will last about 8-12 weeks * Wear your sling for 3 weeks, unless otherwise instructed. You may remove your sling to shower and to dress, but otherwise, you should be in your sling at all times, including while sleeping * The shoulder replacement is very stable and you can use your hand while in the sling * You were shown a series of exercises in the hospital. Do these exercises daily including the exercises you were shown in physical therapy. Medications: * Narcotic You will likely be sent home from the hospital with a prescription for the narcotic pain medication that worked best throughout your stay. * Other medications may be prescribed for specific circumstances. If you have any questions, please call the office at . * Resume previous home medications unless otherwise instructed Dressing Care: Leave the Silverlon dressing in place for 7 days. After 7 days you may remove the dressing. If the incision is not draining then you may leave the andreina open to air. If there is a little bit of drainage or if the andreina are getting stuck on your clothing then cover the incision with a dry dressing. The andreina will be removed at your 2 week follow-up appointment. Showering: You may shower with the Silverlon dressing in place. Do not let the shower spray hit the dressing directly. Pat the Silverlon dressing dry. If the dressing becomes wet underneath, then simply remove the dressing. Keep the incision dry until you are 7 days out from the day of surgery. After 7 days you may remove the Silverlon dressing and shower with the andreina exposed. Let soapy water run over the andreina and pat them dry. Do not scrub or soak the incision. Things To Watch For: * Drainage from the incision site that occurs more than one week after your surgery. * Increased redness at the incision site. * Fever above 102 degrees Fahrenheit. * Unusual chest pain or shortness of breath. * Call [facility] at with any of the above problems Follow-Up Visit: Follow-up with Dr. Sevilla's PA (Aidan Willett) 2-3 weeks after your day of surgery. He will remove your andreina and answer any questions. If you have any additional questions or concerns, Dr Sevilla is usually in the office at the same time and will be available An appointment was probably scheduled when you signed-up for surgery in the office. If you have any questions call More detailed instructions as well as Frequently Asked Questions were provided in a folder by our office when you signed-up for surgery. Please review these instructions when you get home. If you have any further questions or concerns, please feel free to call the office at [phone] Pending Studies at Discharge: No Stand-Alone Forms: [facility], Smoking Cessation Medications and DC Order Prescriptions: New tramadol 50 mg tablet 50 mg PO Q6H PRN (Reason: pain) Qty: 30 0RF Continued acetaminophen 500 mg capsule 500 mg PO Q6H PRN (Reason: PAIN/FEVER) PreserVision AREDS [id number] [id number] capsule 1 cap PO BID nitroglycerin 0.4 mg tablet, sublingual 0.4 mg SL Q5M PRN (Reason: chest pain) Qty: 1 0RF aspirin 81 mg Tablet,Delayed Release (Dr/Ec) 81 mg PO QAM cholecalciferol (vitamin D3) [Vitamin D3] 50 mcg (2,000 unit) Capsule 50 mcg PO HS fluticasone propionate 50 mcg/actuation spray,suspension 2 spray intranasal DAILY PRN (Reason: Congestion) Label Comments: once every 6 months Rx Instructions: administer into each nostril daily Prevagen 1 tab PO QAM clopidogrel 75 mg tablet 75 mg PO QAM simvastatin 40 mg tablet 40 mg PO HS Discharge Orders: Discharge Order (Routine); Ordered 07/08/22 Ordered By: Aidan Sevilla Admission Data Admit Date/Time: 07/07/22 15:02 Attending Provider: Aidan Sevilla Admit Provider: Aidan Sevilla Primary Care Provider: Jaswinder Orta
[2022-07-08] MEDS ORDERED: dexAMETHasone 4 MG TAB PO SCH (08:00)
[2022-07-08] MEDS: DOCUSATE SODIUM 100 MG CAP PO SCH (08:06)
[2022-07-08] MEDS ORDERED: MULTIVITAMIN TAB PO SCH (09:00)
[2022-07-08] MEDS ORDERED: ASPIRIN 81 MG ECTAB PO SCH (09:00)
[2022-07-08] MEDS ORDERED: CLOPIDOGREL BISULFATE 75 MG TAB PO SCH (09:00)
== END 2022-07-08 13:14 | disposition home health service (06) ==
LOC: ASU 10:12 → INTOOBSV 15:02 → 3E 15:02

== ENCOUNTER 2022-12-03 08:48 | Observation (INO) ==
--- NOTE | 2022-10-26 08:54 | PAT Medication Instructions ---
Medication Instructions Date of Service October 26, 2022 Home Medications Medication Instructions Recorded nitroglycerin 0.4 mg sublingual 0.4 mg sublingual Q5M PRN chest 02/11/22 tablet pain #1 tab clopidogrel 75 mg tablet 75 mg PO QAM #100 tabs 09/21/22 simvastatin 40 mg tablet 40 mg PO HS #100 tabs 09/21/22 PreserVision AREDS 1 cap PO BID acetaminophen 500 mg capsule 500 mg PO Q6H PRN PAIN/FEVER nitroglycerin 0.4 mg sublingual tablet 0.4 mg sublingual Q5M PRN chest pain aspirin 81 mg tablet,delayed release 81 mg PO QAM cholecalciferol (vitamin D3) 50 mcg (2,000 unit) capsule (Vitamin D3) 50 mcg PO HS fluticasone propionate 50 mcg/actuation nasal spray,suspension 2 spray intranasal DAILY PRN Congestion Prevagen 1 tab PO QAM clopidogrel 75 mg tablet 75 mg PO QAM simvastatin 40 mg tablet 40 mg PO HS Continue as directed nitroglycerin 0.4 mg sublingual tablet 0.4 mg sublingual Q5M PRN chest pain (if needed) ASK your prescriber and surgeon aspirin 81 mg tablet,delayed release 81 mg PO QAM clopidogrel 75 mg tablet 75 mg PO QAM STOP taking 2 weeks before surgery (or as soon as possible if surgery is within 2 weeks) PreserVision AREDS 1 cap PO BID Prevagen 1 tab PO QAM Take morning of surgery With a small sip of water, OTHERWISE NOTHING TO EAT OR DRINK AFTER MIDNIGHT: acetaminophen 500 mg capsule 500 mg PO Q6H PRN PAIN/FEVER (if needed) fluticasone propionate 50 mcg/actuation nasal spray,suspension 2 spray intranasal DAILY PRN Congestion (if needed) Take evening before surgery acetaminophen 500 mg capsule 500 mg PO Q6H PRN PAIN/FEVER (if needed) cholecalciferol (vitamin D3) 50 mcg (2,000 unit) capsule (Vitamin D3) 50 mcg PO HS fluticasone propionate 50 mcg/actuation nasal spray,suspension 2 spray intranasal DAILY PRN Congestion (if needed) simvastatin 40 mg tablet 40 mg PO HS Other Notes If you have any questions please call us at [phone] or [phone] or [phone] or [phone]
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
[~2022-12-03 08:48] MED LIST changes: -LR 15ML/HR IV SCH; +LR 500ML BOLUS, THEN 15ML/HR IV SCH; +ROPIVACAINE 0.5% 5 MG/ML 30 ML VIAL ONE
[2022-12-03] MEDS ORDERED: PROPOFOL IV EMULSION 10 MG/ML 20 ML VIAL IV ONE (09:50)
[2022-12-03] MEDS ORDERED: LIDOCAINE 2% 2 ML VIAL/AMP(20MG/ML) INFIL ONE (09:50)
[2022-12-03] MEDS ORDERED: MIDAZOLAM HCL 1 MG/ML 2ML VIAL ONE (09:50)
--- NOTE | 2022-12-03 10:24 | History & Physical Bridge Note ---
Date of Service December 03, 2022 History & Physical Bridge Note I have examined the patient, reviewed the History & Physical and in the interval since the performance of the History & Physical I have noted the following changes of clinical significance: no changes noted
[2022-12-03] MEDS ORDERED: ORTHO JOINT ANESTHETIC ONE (10:47)
[2022-12-03] MEDS ORDERED: ePHEDrine sulfate 50 MG/ML AMP IV PRN (11:10)
[2022-12-03] MEDS ORDERED: fentaNYL citrate PF 100 MCG/2 ML VIAL IV PRN (11:10)
[2022-12-03] MEDS ORDERED: ATROPINE SULFATE 0.1 MG/ML 10ML SYR IV PRN (11:10)
[2022-12-03] MEDS ORDERED: ONDANSETRON INJ 2 MG/ML 2 ML VIAL IV PRN ×2 (11:10→15:08)
[2022-12-03] MEDS ORDERED: ePHEDrine sulfate 50 MG/ML SYR ONE (12:42)
--- NOTE | 2022-12-03 12:48 | Operative Report ---
PG Post Operative Report Pre & Post Diagnosis Operation Date: 12/03/22 11:00 Pre-Op Diagnosis: Degenerative Joint Disease Right Knee Post-Op Diagnosis: Degenerative Joint Disease Right Knee I identified the patient and participated in the time-out.: Yes Procedure Operation Date: 12/03/22 11:00 Actual Procedures p Right Total Knee Arthroplasty, Cemented(Right) - Aidan Sevilla DO Surgeon Aidan Sevilla DO Orthopedic Shoe Maker Aidan Willett PA-C Estimated Blood Loss 30 Findings Consistent with Post-Op Diagnosis Specimens Right femoral and tibial bone Description of Procedure Implants used: I used a Kimmy Persona total knee arthroplasty system with a size 11 standard femur, D tibia, 34 oval patella, and a size 10 medial congruent polyethylene bearing. All components were cemented in place with Biomet cement. Cy arrived [facility] for the above procedure. He was seen in the preoperative holding area and the operative extremity was identified and signed. He was given a preoperative antibiotic, TXA, a spinal anesthetic and an adductor nerve block. He was taken back to the operating room and laid on the table in supine position. He was given basic sedation. The operative knee was then prepped and draped in sterile fashion. A timeout was done, and the patient and the operative extremity was properly identified. A midline incision was made directly over the patella. Dissection was taken down to the extensor mechanism. A midvastus arthrotomy was used. The medial retinaculum was released and the fat pad was mostly excised. The knee was flexed and the ACL, PCL, and meniscus were removed. A drill was sent down the center of the femoral canal followed by an intramedullary doris. Off that doris a distal femoral cutting block was placed. 9 mm was resected off the distal femur at 5 of valgus. A posterior referencing AP sizing guide was then placed on the distal femur. The femur measured to be a size 11. 2 drill holes were placed in 3 of external rotation. A 4-in-1 cutting block was then impacted into place. Anterior, posterior, and chamfer cuts were then made. The proximal tibia was then exposed. An external tibial alignment guide was placed. A tibial cut guide was then anchored in place and the proximal tibia was then resected. The posterior aspect of the knee was then opened up and any additional meniscus fragments and osteophytes were removed. The tibia measured to be a size E. The tibial plate was then placed in the appropriate rotation and the tibia was drilled and punched. Trial components were then placed. I used a size 10 medial congruent polyethylene insert. The knee was brought through a full range of motion and felt to be stable. The peg holes for the femoral component were then drilled. The patella was then everted and 9 mm was resected off the posterior aspect of the patella. The patella measured to be a size 34 oval. 3 peg holes were then drilled. A trial patella was placed. The knee was once again brought through a full range of motion and felt to be stable. Trial components were then removed. The surrounding soft tissues were injected with 100 cc of an orthopedic pain control cocktail. All components were then cemented into place with Biomet cement. The final polyethylene insert was then snapped into place. Once cement was dry the tourniquet was deflated. Hemostasis was obtained. A dilute betadyne lavage was then done for 3 minutes. The joint was then irrigated with normal saline solution. The midvastus arthrotomy was then closed with #1 Vicryl suture. The skin was closed with 2-0 Vicryl, 3-0V lock suture, and andreina. A soft compressive dressing was placed. He was then transferred to a hospital bed and taken to the postanesthesia care unit in stable condition. He tolerated the procedure well. Aidan Willett PA-C, was present for the entire procedure. He was critical for patient positioning, prepping, draping, retraction exposure, wound closure and application of sterile dressing. I attest to the content of the Intraoperative Record and any orders documented therein. Any exceptions are noted below.
--- NOTE | 2022-12-03 13:51 | XRay Report ---
XR knee RT 1 or 2V routine CLINICAL HISTORY: Postoperative evaluation. COMPARISON: Knee radiographs March 22, 2022. FINDINGS: Alignment of the total right knee arthroplasty is anatomic. There is no periprosthetic fra cture or unexpected radiopaque foreign body. There are skin andreina. IMPRESSION: Expected findings following total right knee arthroplasty. ACT 112: Negative or not required by law. Electronically signed by: Tom Tinsley M.D. 12/03/2022 1:49 PM
--- NOTE | 2022-12-03 15:07 | Anesthesiology Progress Note ---
Date of Service December 03, 2022 Anesthesia Post Procedure Vital Signs Vital Signs: Temp Pulse Pulse Resp BP Pulse Ox O2 Del Method 12/03/22 14:50 55 L 16 123/67 95 Room Air 12/03/22 14:40 55 L 18 122/71 97 Room Air 12/03/22 14:30 97.5 F L 57 L 14 129/70 98 Room Air 12/03/22 14:20 52 L 12 108/63 98 Room Air 12/03/22 14:10 54 L 16 122/66 100 Room Air 12/03/22 14:00 97.5 F L 58 L 15 120/61 100 Room Air 12/03/22 13:50 59 L 18 105/72 100 Oxymask 12/03/22 13:40 50 L 12 125/68 100 Oxymask 12/03/22 13:30 54 L 13 118/71 100 Oxymask 12/03/22 13:20 55 L 20 126/68 100 Oxymask 12/03/22 13:11 97.9 F 58 L 14 126/78 99 Oxymask 12/03/22 09:25 97.7 F 59 L 20 159/99 H 97 Room Air O2 Flow Rate 12/03/22 14:50 12/03/22 14:40 12/03/22 14:30 12/03/22 14:20 12/03/22 14:10 12/03/22 14:00 12/03/22 13:50 2 12/03/22 13:40 4 12/03/22 13:30 4 12/03/22 13:20 6 12/03/22 13:11 9 12/03/22 09:25 Transfer of Care Handoff Completed per policy Notes Mental Status: alert / awake / arousable and participated in evaluation Patient Amnestic to Procedure: Yes Nausea / Vomiting: adequately controlled Pain: adequately controlled Airway Patency, RR, SpO2: stable & adequate BP & HR: stable & adequate Hydration State: stable & adequate Neuraxial Anesthesia: was administered and sensory block is resolving Anesthetic Complications: no major complications apparent and Pt Satisfied with anesthetic care
[2022-12-03] MEDS ORDERED: FLUTICASONE PROPIONATE NA SPR 16 GM BTL PRN (15:08)
[2022-12-03] MEDS ORDERED: MAGNESIUM HYDROXIDE SUSP 30 ML UDC PO PRN (15:08)
[2022-12-03] MEDS ORDERED: NITROGLYCERIN SL 0.4 MG/TAB TAB SL PRN (15:08)
[2022-12-03] MEDS ORDERED: METOCLOPRAMIDE HCL INJ 5 MG/ML 2 ML VIAL IV PRN (15:08)
[2022-12-03] MEDS ORDERED: bisacodyL 10 MG SUPP PR PRN (15:08)
[2022-12-03] MEDS ORDERED: oxyCODONE HCL IR 5 MG TAB (IMMEDIATE RELEASE) PO PRN (15:08)
[2022-12-03] MEDS ORDERED: NALOXONE HCL 0.4 MG/1 ML VIAL/CARP IV PRN (15:08)
[2022-12-03] MEDS ORDERED: HYDROmorphone INJ 0.5 MG/0.5 ML SYR IV PRN (15:08)
[2022-12-03] MEDS: SODIUM CHLORIDE 0.9% 1000ML 1,000 ML IV SCH (15:41)
[2022-12-03] MEDS: CEROVITE ADV FORMULA TAB PO SCH (16:22)
[2022-12-03] MEDS: ACETAMINOPHEN 500 MG TAB PO SCH (17:22)
[2022-12-03] MEDS: ceFAZolin 2000MG 2,000 MG/15 ML SYR IV SCH (19:27)
[2022-12-03] MEDS: DOCUSATE SODIUM 100 MG CAP PO SCH (19:28)
[2022-12-03] MEDS ORDERED: SENNA 8.6 MG TAB PO SCH (21:00)
[2022-12-03] MEDS ORDERED: SIMVASTATIN 40 MG TAB PO SCH (21:00)
[2022-12-04] MEDS: SODIUM CHLORIDE 0.9% 1000ML 1,000 ML IV SCH (01:30)
[2022-12-04] MEDS: ACETAMINOPHEN 500 MG TAB PO SCH ×2 (02:58→08:27)
[2022-12-04] MEDS: ceFAZolin 2000MG 2,000 MG/15 ML SYR IV SCH (03:53)
[2022-12-04] MEDS ORDERED: dexAMETHasone 4 MG TAB PO SCH (08:00)
[2022-12-04] MEDS: DOCUSATE SODIUM 100 MG CAP PO SCH (08:27)
[2022-12-04] MEDS: CEROVITE ADV FORMULA TAB PO SCH (08:27)
[2022-12-04] MEDS ORDERED: MULTIVITAMIN TAB PO SCH (09:00)
[2022-12-04] MEDS ORDERED: CLOPIDOGREL BISULFATE 75 MG TAB PO SCH (09:00)
--- NOTE | 2022-12-04 09:09 | Orthopedic Progress Note ---
Date of Service December 04, 2022 Assessment & Plan (1) Status post right knee replacement: Overall he is doing very well. He is not having much pain in the right knee. He will be seen by physical therapy today for ambulation and range of motion exercises. The nursing staff can change his dressing after physical therapy. He is on aspirin for DVT prophylaxis. He can be discharged to home later today. He will follow-up with orthopedics in 2 weeks. Lucas Benoit was seen and examined at bedside this morning. Overall he is doing very well. He is not having much pain in the right knee. He has been up and ambulating to the bathroom. He has no complaints.. Review of Systems All systems reviewed & are unremarkable except as noted in HPI & below. Physical Exam On physical examination of right knee, the dressing is clean and dry. His leg is out full extension. He has active dorsiflexion plantarflexion of his right ankle.. Results & Data Results & Data Laboratory Results . Diagnostic Findings Postoperative x-rays of the right hip show the prosthesis to be in anatomic alignment without any evidence of fracture, desiccation, or loosening.. PG Care Time/CCT Total # of Minutes Spent Total Time Spent with Patient: Total time spent is greater than 50% in coordination of care (as documented) at patient's floor/unit and/or counseling patient: Coding Level of Care Code 15317 Post Operative Follow-Up Diagnoses Status post right knee replacement Z96.651
--- NOTE | 2022-12-04 09:10 | Discharge Summary ---
Date of Service December 04, 2022 Admission HPI (Per Admitting) Cy is a pleasant 81-year-old male who I recently did a reverse shoulder arthroplasty on. He is doing very well from that. Unfortunately, he is really struggling with his right knee. It hurts him all the time. Whenever he ambulates, especially going up and downstairs, he has a lot of right knee pain. He uses a walker and a wheelchair at times mostly secondary to balance issues. X-rays and clinical examination been diagnostic for advanced osteoarthritis of the right knee. After failing conservative treatment, he has elected proceed with a right total knee arthroplasty. Admission Exam (Per Admitting) On physical examination of the right knee, he has a slight varus deformity. He has tenderness palpation of the distal medial femoral condyle and over the medial joint line.. Principal Diagnosis Same as "Discharge Diagnosis" noted below under Discharge Instructions. Discharge Exam On physical examination of right knee, the dressing is clean and dry. His leg is out full extension. He has active dorsiflexion plantarflexion of his right ankle.. Discharge Data Procedures Performed Operation Date: 12/03/22 11:00 Actual Procedures p Right Total Knee Arthroplasty, Cemented(Right) - Aidan Sevilla DO Ordered Studies 12/03/22 11:15 US - OR guided needle placemen Routine Hospital Course (1) Status post right knee replacement: On December 03, 2022 Cy arrived at [facility] and underwent a right knee replacement without complication. He had a spinal anesthetic. Postoperatively he was started on aspirin for DVT prophylaxis and transferred to the general orthopedic floors. His hospital course was uneventful. On postop day #1, his vital signs were stable and his pain was well controlled. He was able to participate well with physical therapy doing ambulation and range of motion exercises. He was then discharged home. He will follow-up with orthopedics in 2 weeks. PG Care Time/CCT Total # of Minutes Spent Total Time Spent with Patient: Total time spent is greater than 50% in coordination of care (as documented) at patient's floor/unit and/or counseling patient: Discharge Plan Discharge Items Patient Disposition: Home - Home Health Services Reason For Visit: DJD Right Knee Discharge Diagnosis: Right knee replacement Activity: As commented below Non-emergency contact: Surgeon Call non-emergency contact if: your wound has increased redness and your wound has increased drainage Follow-up/Referrals: Jaswinder Orta MD [Primary Care Provider] - Diet: Regular Addtl Attending Provider Instructions: Activity and Therapy Recommendations: * If you are using [facility] then therapy will be provided at your home until they feel you have accomplished all of your goals. * If you are using [facility] then Physical Therapy will be provided until they feel you are ready to start Outpatient Physical Therapy. * If you are not using home therapy then Outpatient Physical Therapy should start about 3-5 days from your day of surgery. Therapy will last about 6-10 weeks * It is important not to put a pillow under your knee when you are relaxing or sleeping. It is just as important to make sure you are getting your knee perfectly straight as it is to regain your knee bend. * You were shown a series of exercises in the hospital. Do these exercises three times each day including the exercises you were shown in physical therapy. * Get up and walk several times each day. For the first four weeks, try not to stand or walk for more than one hour at a time. If you do stand or walk for more than one hour, you will not hurt anything, but your leg will likely swell. * As you feel comfortable, you may change from the walker or crutches to a cane and then to independent walking. Medications: * Narcotic You will likely be sent home from the hospital with a prescription for the narcotic pain medication that worked best throughout your stay. * Aspirin Most patients will be required to take Aspirin 81mg twice a day for 6 weeks after surgery. This is obtained [id number] and a prescription is not necessary. * Other medications may be prescribed for specific circumstances. If you have any questions, please call the office at . * Resume previous home medications unless otherwise instructed TEDs/Elastic Stockings: The white elastic stockings help limit swelling and prevent blood clots from forming in your legs.~ The more you wear them, the more they work. Wear them for six weeks. Dressing Care: The dressing can be changed after physical therapy on postop day #1. Daily dry dressing changes for a few days, especially if the incision is still d raining some. If the incision is not draining then you may leave the andreina open to air. If there is a little bit of drainage or if the andreina are getting stuck on your clothing then cover the incision with a dry dressing. The andreina will be removed at your 2 week follow-up appointment. Showering: You may shower 5 days from the day of surgery as long as the incision is no longer draining. You may shower with the andreina exposed. Let soapy water run over the andreina and pat them dry. Do not scrub or soak the incision. Things To Watch For: * Drainage from the incision site that occurs more than one week after your surgery. * Increased redness at the incision site. * Fever above 102 degrees Fahrenheit. * Unusual chest pain or shortness of breath. * Call [facility] at with any of the above problems Follow-Up Visit: Follow-up with Dr. Sevilla's PA (Aidan Willett) 2-3 weeks after your day of surgery. He will remove your andreina and answer any questions. If you have any additional questions or concerns, Dr Sevilla is usually in the office at the same time and will be available An appointment was probably scheduled when you signed-up for surgery in the office. If you have any questions call Office Instructions: More detailed instructions as well as Frequently Asked Questions were provided in a folder by our office when you signed-up for surgery. Please review these instructions when you get home. If you have any further questions or concerns, please feel free to call the office at [phone] Pending Studies at Discharge: No Stand-Alone Forms: [facility], Smoking Cessation Medications and DC Order Prescriptions: New tramadol 50 mg tablet 50 mg PO Q6H PRN (Reason: pain) Qty: 30 0RF Continued acetaminophen 500 mg capsule 500 mg PO Q6H PRN (Reason: PAIN/FEVER) PreserVision AREDS [id number] capsule 1 cap PO BID nitroglycerin 0.4 mg tablet, sublingual 0.4 mg SL Q5M PRN (Reason: chest pain) Qty: 1 0RF simvastatin 40 mg tablet 40 mg PO HS Qty: 100 3RF clopidogrel 75 mg tablet 75 mg PO QAM Qty: 100 3RF cholecalciferol (vitamin D3) [Vitamin D3] 50 mcg (2,000 unit) Capsule 50 mcg PO HS fluticasone propionate 50 mcg/actuation spray,suspension 2 spray intranasal DAILY PRN (Reason: Congestion) Patient Comments: once every 6 months Rx Instructions: administer into each nostril daily Prevagen 1 tab PO QAM Changed aspirin 81 mg Tablet,Delayed Release (Dr/Ec) 81 mg PO BID 42 Days Qty: 0 0RF Admission Data Admit Date/Time: 12/03/22 13:14 Attending Provider: Aidan Sevilla Admit Provider: Aidan Sevilla Primary Care Provider: Jaswinder Orta
== END 2022-12-04 12:28 | disposition home health service (06) ==
LOC: ASU 08:48 → 3E 08:48

== ENCOUNTER 2023-02-15 10:43 | Observation (INO) ==
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
[~2023-02-15 10:43] MED LIST changes: -ACETAMINOPHEN 500 MG TAB PO SCH; -BUPIVACAINE 0.5 % 5 MG/1 ML PF 10ML VIAL ONE; +CIPROFLOXACIN / D5W 400 MG/200 ML BAG IV SCH; -FAMOTIDINE 20 MG TAB PO SCH; -GABAPENTIN 300 MG CAP PO SCH; +LR 15ML/HR IV SCH; -LR 500ML BOLUS, THEN 15ML/HR IV SCH; -LR 60ML/HR IV SCH; -ORTHO JOINT MIX INFIL SCH; -ROPIVACAINE 0.5% 5 MG/ML 30 ML VIAL ONE; -TRANEXAMIC ACID 1,000 MG **IV Intra-op IV SCH; -TRANEXAMIC ACID 1,000 MG **IV Pre-op IV SCH; -ceFAZolin 2000MG 2,000 MG/15 ML SYR IV SCH; -dexAMETHasone 4 MG TAB PO SCH
[2023-02-15] MEDS ORDERED: PROPOFOL IV EMULSION 10 MG/ML 20 ML VIAL IV ONE ×3 (12:38→14:08)
[2023-02-15] MEDS ORDERED: LIDOCAINE 2% 2 ML VIAL/AMP(20MG/ML) INFIL ONE (12:38)
[2023-02-15] MEDS ORDERED: fentaNYL citrate PF 100 MCG/2 ML VIAL ONE ×2 (12:38→14:03)
[2023-02-15] MEDS ORDERED: ONDANSETRON INJ 2 MG/ML 2 ML VIAL ONE (12:38)
--- NOTE | 2023-02-15 12:44 | History & Physical Bridge Note ---
Date of Service February 15, 2023 History & Physical Bridge Note I have examined the patient, reviewed the History & Physical and in the interval since the performance of the History & Physical I have noted the following changes of clinical significance: no changes noted
[2023-02-15] MEDS ORDERED: ePHEDrine sulfate 50 MG/ML AMP IV PRN (13:50)
[2023-02-15] MEDS ORDERED: ONDANSETRON INJ 2 MG/ML 2 ML VIAL IV PRN ×2 (13:50→16:01)
[2023-02-15] MEDS ORDERED: PROMETHAZINE HCL 12.5 MG in SODIUM CHLORIDE 0.9% 50 ML IV PRN (13:50)
[2023-02-15] MEDS ORDERED: fentaNYL citrate PF 100 MCG/2 ML VIAL IV PRN (13:50)
[2023-02-15] MEDS ORDERED: HYDROmorphone INJ 2 MG/ML SYR/VIAL IV PRN (13:50)
[2023-02-15] MEDS ORDERED: ATROPINE SULFATE 0.1 MG/ML 10ML SYR IV PRN (13:50)
[2023-02-15] MEDS ORDERED: ePHEDrine sulfate 50 MG/5 ML SYR ONE (14:08)
--- NOTE | 2023-02-15 14:44 | Operative Report ---
PG Post Operative Report Pre & Post Diagnosis Operation Date: 02/15/23 12:10 Pre-Op Diagnosis: Urinary Retention Post-Op Diagnosis: Urinary Retention I identified the patient and participated in the time-out.: Yes Procedure Operation Date: 02/15/23 12:10 Actual Procedures p TURP (Transurethral Resection Prostate)(Not Applicable) - Jt Cody MD Surgeon Jt Cody MD Braille Operator none Estimated Blood Loss 10 Findings Consistent with Post-Op Diagnosis Specimens Prostate chips for routine pathology Description of Procedure The patient was identified in the preoperative holding area, appropriate informed consents were reviewed and completed and the patient was transferred to the operative suite. Upon arrival, appropriate antibiotics and anesthesia were administered and the patient was placed in dorsal lithotomy position and prepped and draped in sterile fashion. Begin the case to pass 27 Green[place]ic resectoscope with 30 degree lens and visual machine operator packaging. Inspection revealed a healthy-appearing urethra without stricture disease. His prostate is notably enlarged with substantial lateral lobe hypertrophy as well as a substantial intravesical median lobe. Bladder is heavily trabeculated but without mucosal abnormalities or tumors. There are no stones within the bladder. Ureteral orifices were identified behind the median lobe. Following my inspection I chose a loop electrode and began resection of the intravesical median lobe. After flattening the median lobe I moved onto the left lateral lobe followed by the right lateral lobe. Of note, he has had a prior UroLift and I encountered these devices in the midportion of my resection I was able to resect the clips. These were evacuated out of the bladder. After evacuating all of the prostatic chips out of the bladder I return to the prostate with a button electrode and began smoothing the tissue and further resecting. After approximately an hour and a half total of operating time I felt confident that we had achieved that goal. There was excellent hemostasis and a widely patent prostatic urethra. I concluded the case by placing a 22 Green[place]ic Landeros catheter and patient was reversed of anesthesia and taken to the recovery room in stable condition. There were no complications His prostate chips were passed off the table for routine pathology. I attest to the content of the Intraoperative Record and any orders documented therein. Any exceptions are noted below.
--- NOTE | 2023-02-15 15:16 | Anesthesiology Progress Note ---
Date of Service February 15, 2023 Anesthesia Post Procedure Vital Signs Vital Signs: Temp Pulse Pulse Resp BP Pulse Ox O2 Del Method 02/15/23 15:10 65 16 108/77 98 Room Air 02/15/23 15:00 62 16 121/68 100 Oxymask 02/15/23 14:50 63 17 112/77 99 Oxymask 02/15/23 14:41 36.4 C L 67 18 106/62 95 Oxymask 02/15/23 11:09 36.4 C L 56 L 20 156/78 H 97 Room Air O2 Flow Rate 02/15/23 15:10 02/15/23 15:00 5 02/15/23 14:50 5 02/15/23 14:41 5 02/15/23 11:09 Transfer of Care Handoff Completed per policy Notes Mental Status: alert / awake / arousable and participated in evaluation Patient Amnestic to Procedure: Yes Nausea / Vomiting: adequately controlled Pain: adequately controlled Airway Patency, RR, SpO2: stable & adequate BP & HR: stable & adequate Hydration State: stable & adequate Anesthetic Complications: no major complications apparent and Pt Satisfied with anesthetic care
[2023-02-15] MEDS ORDERED: NITROGLYCERIN SL 0.4 MG/TAB TAB SL PRN (16:01)
[2023-02-15] MEDS ORDERED: ACETAMINOPHEN 325 MG TAB PO PRN (16:01)
[2023-02-15] MEDS ORDERED: traMADol HCL 50 MG TABLET PO PRN (16:01)
[2023-02-15] MEDS ORDERED: CYCLOBENZAPRINE HCL 10 MG TAB PO PRN (16:01)
[2023-02-15] MEDS: SODIUM CHLORIDE 0.9% 1,000 ML IV SCH (16:22)
[2023-02-15] MEDS: CEROVITE ADV FORMULA TAB PO SCH (17:04)
[2023-02-15] MEDS ORDERED: CHOLECALCIFEROL 1,000 UNITS 25 MCG TAB PO SCH (21:00)
[2023-02-15] MEDS ORDERED: SIMVASTATIN 40 MG TAB PO SCH (21:00)
[2023-02-15] MEDS ORDERED: CIPROFLOXACIN / D5W 400 MG/200 ML BAG IV SCH (23:00)
[2023-02-16] MEDS: SODIUM CHLORIDE 0.9% 1,000 ML IV SCH (03:47)
[2023-02-16 07:16] LABS: Hemoglobin 11.6 g/dl (14.0-18.0); Mean Corpuscular Hemoglobin 28.9 pg (25.0-34.0); Mean Corpuscular Hgb Conc 33.1 g/dL (32.0-36.0); Mean Corpuscular Volume 87.1 fL (80.0-100.0); Mean Platelet Volume 9.1 fL (9.4-12.4); Platelet Count 261 K/uL (130-400); RDW Standard Deviation 45.4 fL (36.4-46.3); Red Blood Count 4.02 M/uL (4.70-6.10); White Blood Count 6.69 K/ul (4.8-10.8)
[2023-02-16 07:29] LABS: Calcium 8.8 mg/dl (8.6-10.3); Creatinine Clr Calc Pharmacy 59.7 ml/min; Est GFR (African American) 90.1 ml/min; Est GFR (Non-African American) 77.7 ml/min
[2023-02-16] MEDS: CEROVITE ADV FORMULA TAB PO SCH (07:55)
[2023-02-16] MEDS ORDERED: ASPIRIN 81 MG ECTAB PO SCH (09:00)
--- NOTE | 2023-02-16 09:08 | Urology Progress Note ---
Date of Service February 16, 2023 Assessment & Plan (1) Benign prostatic hyperplasia (BPH) with straining on urination: Plan Postop day #1 status post TURP Urine clear Labs stable Plan for voiding trial this morning Resume Plavix on Tuesday if urine remains clear Discharge home after void Admission and Anticipated Discharge Date Admission Date: February 15, 2023 Subjective No major issues overnight No discomfort Urine is clear Landeros draining appropriately and labs are all appropriate Physical Exam Physical Exam: Clear urine Results & Data Vital Signs (Past 12 Hours) Vital Signs Temp Pulse Resp BP Pulse Ox O2 Del Method 02/16/23 07:16 37.2 C 54 L 16 129/69 95 Room Air 02/16/23 02:20 36.5 C 61 18 131/74 99 Room Air 02/15/23 23:08 36.8 C 70 18 144/81 H 95 Room Air PG Care Time/CCT Total # of Minutes Spent Total Time Spent with Patient: Total time spent is greater than 50% in coordination of care (as documented) at patient's floor/unit and/or counseling patient: Coding Level of Care Code None Diagnoses Benign prostatic hyperplasia (BPH) with straining on urination N40.1; R39.16
--- NOTE | 2023-02-16 11:29 | Discharge Summary ---
Date of Service February 16, 2023 Admission HPI Per Admitting Provider Patient with history of BPH with obstruction and urinary retention here for TURP. Admission Exam Per Admitting Provider Constitutional well developed and well nourished Neck neck nontender Respiratory normal respiratory effort; no respiratory distress and does not use accessory muscles Cardiovascular Rate/Rhythm: regular rate Vessels: radial pulses present Extremities: no edema Gastrointestinal (Abdomen) Inspection/Auscultation: abdomen normal to inspection Percussion/Palpation: abdomen soft; abdomen nontender and no guarding Musculoskeletal Head/Neck/Chest: normocephalic and head atraumatic Extremities: extremities normal to inspection Skin no rashes and no lesions Trauma: no evidence of skin trauma Neurologic awake; not obtunded Speech / Cognition: normal speech Motor/Sensory: no tremor Psychiatric Orientation: alert and oriented x 3 Genitourinary no CVA tenderness Lymphatic no lymphadenopathy Principal Diagnosis Urinary retention Discharge Exam General: well-appearing, no acute distress HEENT: Normocephalic, mucous membranes moist Pulmonary: Nonlabored respirations Abdomen: Nondistended Extremities: Moves all 4 spontaneously, walker Neuro: No gross deficits Psych: alert and oriented, normal mood Skin: Warm, dry, no rashes noted Discharge Data Allergies Allergy/AdvReac Type Severity Reaction Status Date / Time Sulfa (Sulfonamide AdvReac Intermediate Severe Verified 02/15/23 11:12 Antibiotics) mouth ulcers celecoxib AdvReac Mild Mouth Verified 02/15/23 11:12 ulcers rofecoxib AdvReac Mild Mouth Verified 02/15/23 11:12 ulcers Procedures Performed Operation Date: 02/15/23 12:10 Actual Procedures p TURP (Transurethral Resection Prostate)(Not Applicable) - Jt Cody MD Hospital Course (1) Benign prostatic hyperplasia (BPH) with straining on urination: Plan Postop day #1 status post TURP Urine clear Labs stable Plan for voiding trial this morning Resume Plavix on Tuesday if urine remains clear Discharge home after void Patient reassessed midmorninghe voided twice since catheter removal. He is feeling well and ready for discharge. at bedside. Expected clinical course reviewed, all questions answered. Follow-up appointments in place. Total Time Total Time Spent Total Time Spent (In Minutes): 29 Discharge Plan Discharge Items Patient Disposition: Home - Self-Care Reason For Visit: Urinary Retention Discharge Diagnosis: Urinary retention Activity: Per Instructions section Lifting: No more than 25 pounds Bathing Comment: Okay to shower after discharge Sexual Activity: Wait until after follow-up appointment Exercise/Sports: Wait until after follow-up appointment Driving/Machine Use: Resume 1 day after discharge Non-emergency contact: Surgeon and Urologist Call non-emergency contact if: your pain is not controlled, you have a fever and your temperature is above 101 Follow-up/Referrals: Pro,Jaswinder Raymond MD [Primary Care Provider] - Brooklyn Huerta CRNP [Nurse Practitioner] - 03/21/23 10:30 am Diet: Regular Addtl Attending Provider Instructions: Please take all medications as prescribed and keep all follow-ups as scheduled. Please call our office at [phone] with any questions, concerns or need to reschedule appointments for any reason. We are happy to assist you. Okay to resume your Plavix on Tuesday if your urine to clear to pink. Call on Tuesday for further instruction if your urine is mccoy/fruit punch colored. Tips for your recovery at home: Dont be alarmed by brownish or reddish blood or clots in your urine. This is a result of the procedure. This may occur off and on for weeks to months after the procedure but should continue to improve. Drink plenty of fluids during the day (enough to keep your urine very light colored). This will help keep a healthy flow of urine. Do not lift >25 lbs until your followup Avoid constipation. Please use a stool softener (Colace) for the first two weeks after your procedure Be sure to finish the antibiotics as prescribed. If you go home with a catheter, please wash tubing where it enters your body twice daily with mild soap (Dove or Dial). Once your catheter is removed, expect some blood in your urine and some burning when you urinate. You should have an appointment to have this removed, if you do not please call our office to arrange. Pending Studies at Discharge: No Stand-Alone Forms: [employer], Smoking Cessation Medications and DC Order Prescriptions: Continued cyclobenzaprine 10 mg tablet 10 mg PO TID PRN (Reason: muscle spasm) Qty: 18 0RF PreserVision AREDS [id number] capsule 1 cap PO BID nitroglycerin 0.4 mg tablet, sublingual 0.4 mg SL Q5M PRN (Reason: chest pain) Qty: 1 0RF simvastatin 40 mg tablet 40 mg PO HS Qty: 100 3RF cholecalciferol (vitamin D3) [Vitamin D3] 50 mcg (2,000 unit) Capsule 50 mcg PO HS Prevagen 1 tab PO QAM aspirin 81 mg tablet,delayed release (DR/EC) 81 mg PO QAM Held clopidogrel 75 mg tablet 75 mg PO QAM Qty: 100 3RF Hold Instructions: Resume on 02/18/23. Resume on Tuesday if urine is clear to pink Discharge Orders: Discharge Order (Routine); Ordered 02/16/23 Ordered By: Dot Bunch/Other Patient Handouts: Hematuria Ch Urologic Causes Admission Data Admit Date/Time: 02/15/23 14:41 Attending Provider: Jt Cody Admit Provider: Jt Cody Primary Care Provider: Jaswinder Orta Other Interventions: Discharge Summary Assessment (RN) Last Done: 02/16/23 11:22 Coding Level of Care Code 42513 IN/OBS DISCH 30 MIN/LESS Diagnoses Benign prostatic hyperplasia (BPH) with straining on urination N40.1; R39.16
== END 2023-02-16 11:50 | disposition home or self-care (01) ==
LOC: ASU 10:43 → 3E 10:43
DX: R33.8 Other retention of urine; Z87.891 Personal history of nicotine dependence; R39.16 Straining to void; Z88.2 Allergy status to sulfonamides; I25.10 Atherosclerotic heart disease of native coronary artery without angina pectoris; N40.1 Benign prostatic hyperplasia with lower urinary tract symptoms; Z88.1 Allergy status to other antibiotic agents